=== PATIENT | female | born 1970 | race Caucasian/White ===

== ENCOUNTER → 2020-11-09 13:24 | Outpatient (BNVA) | payer SELFPAY | PROVIDERS: Visit Provider Orthopaedic Surgery | DX: M47.896 Other spondylosis, lumbar region (principal); M47.894 Other spondylosis, thoracic region; M54.6 Pain in thoracic spine; M54.5 Low back pain | CPT/HCPCS: 72072; 72110 ==

== ENCOUNTER 2020-12-01 08:54 | Day surgery (SDC) | payer SELFPAY ==
[2020-12-01] VITALS (12 sets, daily range): BP systolic 107–136; BP diastolic 61–81; PULSE 80–105; RESP 16–92; TEMP 36.1–36.6; O2SAT 92–97; BMI 33.3
--- NOTE | 2020-12-01 | SCC_ITS ---
25.8 seconds of fluoroscopic guidance, for a cumulative dose of 8.15 mGy, was provided to Dr. Sol by the radiology department. C-arm images of the lumbar spine were saved for the patient's permanent record. [facility]
--- NOTE | 2020-12-01 | XR_ITS ---
WS: [id number] Lumbar spine, C-arm fluoroscopy, 12/01/2020 Clinical Data: decompression L4/L5 L5/S1 Comparison: Lumbar spine, 11/09/2020. Findings: Dr. Sol decompressed the L4-L5 disc. XR/XR lumbar spine 1V [id number] Impression: L4-L5 decompression.
--- NOTE | 2020-12-01 09:41 | ANES.PREANE2 ---
Pre-Anesthetic Assessment Pre-Anesthetic Assessment: Height/Weight: Height 1.63 m Weight 87.997 kg Temp Pulse BP Pulse Ox 97 F L 100 120/79 96 12/01/20 09:26 12/01/20 09:26 12/01/20 09:26 12/01/20 09:26 Preop Diagnosis: lumbar stenosis Proposed Procedure: Operation Date: 12/01/20 10:15 Proposed Procedures p right MIS Decompression L4/5 86225 L5/S1 53873 M48.062(Right) - Luan Sol DO Familial anesthetic complications: none Was Beta Vanda taken within 24 hours: N/A Was Clonidine taken within 24 hours: N/A Last intake: > 8hrs Social: Social History: No alcohol and No tobacco Exam: Pre-Anes Outpt Exam: alert, oriented x 3, clear to auscultation bilaterally and regular rate & rhythm Airway: Cervical ROM: WNL MP: 3 Dentition: Other (back teeth missing) GI: GI: GERD Metabolic: Metabolic: Morbid obesity Anesthetic Plan: ASA status: 2 Anesthesia: General Risk of > 500 ml blood loss (7ml/kg in children): No PFSH Anesthesia PFSH: Social History Smoking and tobacco status: former smoker Data Anesthesia Cardiac Studies: No Data to Display
[2020-12-01] MEDS: sodium chloride 0.9% 1,000 ML 30 ML IV (09:57)
[2020-12-01] MEDS: midazolam 1 mg/mL INJ 2 mL 2 MG IVP (09:58)
[2020-12-01 10:00] LABS: OR HCG Qualitative Urine Negative (Negative)
[2020-12-01] MEDS: fentaNYL 50 mcg/mL INJ 2mL IVP (11:42)
[2020-12-01] MEDS: HYDROcodone-acetaminophen 5-325 mg Tablet 1 TAB PO ×2 (12:45→13:30)
--- NOTE | 2020-12-01 14:25 | ANE.PACU2 ---
Inpatient post-anesthesia follow up: Airway intact: Yes Vital signs: Temperature 97.6 F Pulse Rate 80 Respiratory Rate 92 Blood Pressure 114/73 Pulse Oximetry 92 Oxygen Delivery Me thod Room Air Oxygen Flow Rate 8 Fraction of Inspir ed Oxygen Hydration adequate: Yes Nausea and vomiting: No Pain level: 2 Mental status: Baseline
== END 2020-12-01 13:55 | disposition home or self-care (01) ==
PROVIDERS: Visit Provider Orthopaedic Surgery
PROC: (CPT 63005; principal; 2020-12-01 10:05)
DX: M48.062 Spinal stenosis, lumbar region with neurogenic claudication (principal); K21.9 Gastro-esophageal reflux disease without esophagitis; E66.01 Morbid (severe) obesity due to excess calories; Z68.33 Body mass index [BMI] 33.0-33.9, adult; Z87.891 Personal history of nicotine dependence
CPT/HCPCS: 63047; 63048; 72020; 76000; 81025; 84703; 96374; J0690; J1100; J2250; J2370; J2405; J2704; J3010; J3490; J7030

== ENCOUNTER → 2022-07-02 10:51 | Outpatient (BNVA) | payer BC, SELFPAY | PROVIDERS: Visit Provider Physician Assistant | DX: Z98.890 Other specified postprocedural states (principal) | CPT/HCPCS: 72100 ==

== ENCOUNTER → 2023-02-06 16:03 | Outpatient (BNVA) | payer BC, MEDICAID, SELFPAY | PROVIDERS: PCP Family Medicine; Visit Provider Family Medicine | DX: Z01.818 Encounter for other preprocedural examination (principal) | CPT/HCPCS: 81000 ==

== ENCOUNTER 2023-02-07 11:13 | Observation (INO) | payer BC, MEDICAID, SELFPAY ==
[2023-02-06 10:50] VITALS: BMI 30.7
[2023-02-07] VITALS (23 sets, daily range): BP systolic 90–133; BP diastolic 53–80; PULSE 86–115; RESP 14–26; TEMP 36.2–37.2; O2SAT 90–98
--- NOTE | 2023-02-07 | XR_ITS ---
WS: [id number] Lumbar spine, C-arm fluoroscopy views, 02/07/2023 Clinical Data: L4-pelvis fusion, or pic Comparison: None. Findings: Dr. Sol: performed a posterior lumbosacral fusion with artificial disks and fusion of the SI joints . Impression: Posterior lumbosacral fusion.
[2023-02-07] MEDS: sodium chloride 0.9% 1,000 ML 30 ML IV (06:27)
[2023-02-07] MEDS: methadone 10 mg Tablet PO (06:28)
--- NOTE | 2023-02-07 06:35 | W.PM.OPSUD ---
Surgery/Procedure H&P Update DATE OF PROCEDURE: February 07, 2023 DATE H&P PERFORMED: 02/06/23 H&P UPDATE INFORMATION: I have reviewed H&P completed within last 30 days, I have examined patient prior to procedure and No changes to prior documentation PREOP DIAGNOSIS: Low BackPain PLANNED PROCEDURE: Operation Date: 02/07/23 07:00 Proposed Procedures p Posterior Lumbar Interbody Fusion(Not Applicable) - Luan Sol DO s Sacroiliac Joint Fusion SI Joint Fusion(Not Applicable) - Luan Sol DO
[2023-02-07] MEDS: ceFAZolin 2,000 MG in sodium chloride 0.9% (plus) 50 ML 100 MG IV ×3 (07:01→23:21)
[2023-02-07] MEDS: midazolam 1 mg/mL INJ 2 mL 2 MG IVP (07:01)
[2023-02-07] MEDS: famotidine 20 mg/2 mL INJ IVP (07:01)
[2023-02-07] MEDS: scopolamine 1.5 Patch 1 PATCH TRANSDERMA (07:02)
[2023-02-07 07:31] LABS: Basophils % 0.4 %; Eosinophils # 0.2 10^3/uL (0.0-0.8); Eosinophils % 2.3 %; Hematocrit 38.5 % (36-47); Lymphocytes # 2.1 10^3/uL (0.8-4.8); Lymphocytes % 28.7 %; Mean Corpuscular Hemoglobin 30.3 pg (27-33); Mean Corpuscular Volume 89.1 fl (85-98); Mean Platelet Volume 9.6 fL (7.4-10.4); Monocytes # 0.7 10^3/uL (0.2-0.9); Neutrophils # 4.31 10^3/uL (1.8-7.7); Neutrophils % 59.5 %; Nucleated Red Blood Cells % 0 %; Platelet Count 218 10^3/cmm (157-399); Red Blood Count 4.32 10^6/uL (3.85-5.65); Red Cell Distribution Width 11.8 % (12.1-15.1); White Blood Count 7.25 10^3/uL (3.29-11.43)
[2023-02-07 07:44] LABS: Alanine Aminotransferase 27 U/L (0-33); Albumin Level 4.2 g/dL (3.5-5.2); Alkaline Phosphatase 91 U/L (35-105); Anion Gap 14.8 (5-19); Aspartate Amino Transferase 27 U/L (0-32); Blood Urea Nitrogen 12 mg/dL (6-20); Calcium 9.2 mg/dL (8.5-10.5); Carbon Dioxide 24 mmol/L (22-29); Chloride 107 mmol/L (98-107); Globulin 2.5 g/dL (1.3-4.6); Glucose 134 mg/dL (65-115); Osmolality Calculated 296 mOsm/kg (285-295); Potassium 3.8 mmol/L (3.5-5.1); Sodium 142 mmol/L (136-145); Total Bilirubin 0.2 mg/dL (0.15-1.2); Total Protein 6.7 g/dL (6.6-8.7)
[2023-02-07] MEDS: lidocaine-epi 1% 20 mL INJ INJECTION (08:00)
[2023-02-07] MEDS: vancomycin 1,000 MG SDV 1000 MG XX (08:08)
[2023-02-07] MEDS: heparin, porcine 1,000 unit/mL INJ 10 mL 10000 UNIT IRRIGATION (08:11)
--- NOTE | 2023-02-07 08:26 | ANES.PREANE2 ---
Pre-Anesthetic Assessment Height/Weight: Height 1.62 m Weight 80.739 kg Temp Pulse Resp BP Pulse Ox O2 Del Method 97.8 F 90 16 110/68 96 Room Air 02/07/23 06:11 02/07/23 06:11 02/07/23 06:28 02/07/23 06:11 02/07/23 06:11 02/07/23 06:33 Preop Diagnosis: Low BackPain Operation Date: 02/07/23 07:00 Proposed Procedures p Posterior Lumbar Interbody Fusion(Not Applicable) - Luan Sol DO s Sacroiliac Joint Fusion SI Joint Fusion(Not Applicable) - Luan Sol DO Familial anesthetic complications: none Was Beta Vanda taken within 24 hours: N/A Was Clonidine taken within 24 hours: N/A Last intake: Intake Last Liquid Date 02/06/23 Last Liquid Time 20:00 Last Solid Date 02/06/23 Last Solid Time 21:00 Social No alcohol and No tobacco Exam alert, oriented x 3, clear to auscultation bilaterally and regular rate & rhythm Airway Submandibular: within normal limits Cervical ROM: within normal limits Mallampati: Class II Dentition: chipped GI Gastroesophageal Reflux Disease Metabolic Hyperlipidemia, Morbid Obesity and Thyroid Disease Chronic steroid Musc/skel Lower Back Pain and Osteoarthritis/DJD Neuropsych Anxiety and Depression Chronic pain/opioid Anesthetic Plan ASA status: 3 Anesthesia: General Other: Discussed a.line and transfusion Medications/Allergies Home Medications Medication Instructions Recorded Confirmed Last Taken Type atorvastatin 10 mg tablet 40 mg PO DAILY 11/09/20 02/06/23 02/06/23 History clonazepam 1 mg tablet 0.5 mg PO DAILY 11/09/20 02/07/23 02/07/23 History duloxetine 60 mg capsule,delayed 60 mg PO BID 11/09/20 02/06/23 02/07/23 History release (Cymbalta) lamotrigine 100 mg tablet 100 mg PO DAILY 11/09/20 02/07/23 02/06/23 History (Lamictal) pantoprazole 20 mg tablet,delayed 20 mg PO DAILY 11/09/20 02/06/23 02/07/23 History release hydrocodone 5 mg-acetaminophen 325 1 - 2 tab PO .Q4-6H PRN pain 7 07/02/22 02/06/23 02/06/23 Rx mg tablet days #40 tabs levothyroxine 75 mcg capsule 75 mcg PO DAILY 07/02/22 02/06/23 02/07/23 History prednisone 5 mg tablet 5 mg PO DIRECTED 10/15/22 02/06/23 02/01/23 History intraoperative neurophysiological #1 ea 12/20/22 12/20/22 Unknown Rx monitoring Cher White #1 ea 01/27/23 Unknown Rx laurala white #1 ea 01/27/23 Unknown Rx cher white #1 ea 01/27/23 Unknown Rx cetirizine 10 mg tablet 10 mg PO BID PRN Allergic Symptoms 02/06/23 02/07/23 02/07/23 History fenofibrate 54 mg tablet 54 mg PO DAILY 02/06/23 02/07/23 02/06/23 History methocarbamol 750 mg tablet 750 mg PO TID PRN Spasms 02/06/23 02/07/23 02/06/23 History trazodone 50 mg tablet 100 mg PO DAILY 02/06/23 02/07/23 02/06/23 History Allergies Allergy/AdvReac Type Severity Reaction Status Date / Time hydromorphone [From Dilaudid] Allergy Severe ALGY-Anaphy Verified 02/07/23 06:13 laxis metronidazole Allergy Intermediate Urticaria Verified 02/07/23 06:13 sulfamethoxazole Allergy Mild Hives Verified 02/07/23 06:13 [From Bactrim] trimethoprim [From Bactrim] Allergy Mild Hives Verified 02/07/23 06:13 Current Medications Generic Name Dose Route Start Last Admin Trade Name Freq PRN Reason Stop Dose Admin Sodium Chloride 1,000 mls @ 30 mls/hr 02/07/23 06:15 02/07/23 06:27 Sodium Chloride 0.9% IV 02/08/23 06:14 30 mls/hr .Q24H SINGH Administration Midazolam HCl 2 mg 02/07/23 06:11 02/07/23 07:01 Midazolam 1 Mg/Ml Inj 2 Ml IVP 2 mg ONCE PRN Administration Preop Anxiety Data Anesthesia 02/07/23 06:50 02/07/23 06:50 Short CBC 02/07/23 Range/Units 06:50 WBC 7.25 (3.29-11.43) 10^3/uL Hgb 13.10 (11.27-16.99) g/dL Hct 38.5 (36-47) % MCV 89.1 (85-98) fl Plt Count 218 (157-399) 10^3/cmm Neut % (Auto) 59.5 % Neut # (Auto) 4.31 (1.8-7.7) 10^3/uL BMP 02/07/23 06:50 Sodium 142 Potassium 3.8 Chloride 107 Carbon Dioxide 24 BUN 12 Creatinine 0.9 Glucose 134 H Calcium 9.2 Liver Function 02/07/23 Range/Units 06:50 Total Bilirubin 0.2 (0.15-1.2) mg/dL AST 27 (0-32) U/L ALT 27 (0-33) U/L Alkaline Phosphatase 91 (35-105) U/L Albumin 4.2 (3.5-5.2) g/dL Blood Bank 02/07/23 06:50 Blood Type A Positive Rho(D) Type Positive Antibody Screen Negative Cardiac Studies: No Data to Display
--- NOTE | 2023-02-07 11:01 | P.OP_ITS ---
Operative Report Date of procedure: February 07, 2023 Pre-op diagnosis: Lumbar stenosis with neurogenic claudication Post-op diagnosis: same Procedure done: 1. L4/5 Interbody fusion with posterolateral fusion 2. L5/S1 Interbody fusion with posterolateral fusion 3. Instrumentation L4-S1 4. Lumbopelvic fixation 5. Cage at L4/5 6. Cage L5/S1 7. open Right Sacral iliac fusion 8. open Left sacral iliac fusion 9. L4/5 laminectomy with facetectomy 10. L5/S1 Laminectmy with partial facetectomy 11. use of computer navigation/stereotactic for spine 12. use of autograft from same incision 13. allograft 14. Bone marrow aspirate from right iliac crest Surgeon: Luan Sol DO Farm Tractor Operator: Tra Jensen Farm Tractor Operator: The assistant superintendent, MORRO Epstein was needed for his expertise under the microscope. He was important and necessary throughout the procedure to complete in a safe and timely manner. He assisted with patient positioning prepping and draping tissue retraction suctioning of the operative field protection of the dural sac and tissue closure the assistant superintendent, MORRO Epstein was needed for his expertise under the microscope. He was important and necessary throughout the procedure to complete in a safe and timely manner. He assisted with patient positioning prepping and draping tissue retraction suctioning of the operative field protection of the dural sac and tissue closure Estimated blood loss (mL): 500 Procedure: 1. L4/5 Interbody fusion with posterolateral fusion 2. L5/S1 Interbody fusion with posterolateral fusion 3. Instrumentation L4-S1 4. Lumbopelvic fixation 5. Cage at L4/5 6. Cage L5/S1 7. open Right Sacral iliac fusion 8. open Left sacral iliac fusion 9. L4/5 laminectomy with facetectomy 10. L5/S1 Laminectmy with partial facetectomy 11. use of computer navigation/stereotactic for spine 12. use of autograft from same incision 13. allograft 14. Bone marrow aspirate from right iliac crest Patient is brought to the operative suite. After undergoing anesthesia, the patient had neuro monitoring attached. Patient was then placed in the prone position on the Elier table. All areas of impingement were well-padded. Patient was then prepped and draped in the normal sterile fashion. Skin incision was then made over the L4 to the sacrum . Subperiosteal dissection was made out to the transverse processes of L4 and L5 and sacral ala. Once the exposure was complete attention was then brought to placing the pedicle screws. Next attention was brought to obtain the bone marrow aspirate.? This was done by using the regenerative bone marrow aspiration kit.? 20 cc of bone marrow aspirate were taken from the right iliac crest.? This was later used with the osteo amp bone graft. Next attension was brought to placing the fiducial for the computer navigation.? 2 pins were placed into the right iliac crest.? The fiducial was attached.? The C-arm was brought in and information from serum was then linked to the computer used for placing the screws.? The case. Next attention was brought to placing the pedicle screws.? This was done by using the gearshift probe.? The probe was used to identify the pedicle.? Then the pedicle feeler was used followed by placement of screw.? This was done at L4 bilaterally, L5 bilaterally and S1 bilaterally. Next attension was brought to placing the iliac screws.? This was done using the sacral ala iliac technique.? The gearshift probe linked to computer navigation was then placed through the sacral ala into the sacroiliac joint into the iliac crest.? Next the pedicle feeler was used followed by the computer navigated tap.? And then the screw was passed a 80 mm screw was placed on the right side. Next attension was brought to performing the open and sacral iliac fusion.? This was done by again using the gearshift probe linked to computer navigation.? Followed by pedicle feeler followed by placing a wire and then the drill drilled over the wire and then bone graft was packed into the sacroiliac joint and into the drill hole.? And the sacroiliac screw was then placed.? This technique was done on the right side. Next attention was brought to performing the laminectomy ofL4. This was done using the high-speed bur Kerrisons and curettes. Once the lamina was removed and then attention was brought to performing a partial facetectomy on the contralateral side. This was done again using the high-speed bur curettes and Kerrisons. The ligamentum flavum was taken down bilaterally from L4 to L5. Attention was then brought to the facet on the ipsilateral side. The facet was taken down. The L5 nerve was decompressed as it passed around the L5 pedicle. The laminectomy was done for purposes of decompressing the nerve as well as placement of the cage. The L4 nerve was identified as it traversed through the L4/5 foramen. The thecal sac was identified and retracted. The L4/5 disc base was identified. Using a knife the disc base was opened. And then sequential emir were placed. The first shaver was a 6 and the last shaver was a 12. Using a pituitary and down going curette the endplates were scraped and disc material was removed from the space. Once adequate decompression of the disc base was felt to be had. Osteoamp sponge was packed into the anterior aspect of the disc base. Then a size 12 cage from [employer] was placed after packing osteoamp into the cage. While placing the cage the thecal sac and L5 nerve was protected. C arm was used to ensure that the cages placed in the appropriate position. Next attention was brought to performing the laminectomy ofL5. This was done using the high-speed bur Kerrisons and curettes. Once the lamina was removed and then attention was brought to performing a partial facetectomy on the contralateral side. This was done again using the high-speed bur curettes and Kerrisons. The ligamentum flavum was taken down bilaterally from L5 to S1. Attention was then brought to the facet on the ipsilateral side. The facet was taken down. The S1 nerve was decompressed as it passed around the S1 pedicle. The laminectomy was done for purposes of decompressing the nerve as well as placement of the cage. The L5 nerve was identified as it traversed through the L5/S1 foramen. The thecal sac was identified and retracted. The L5/S1 disc base was identified. Using a knife the disc base was opened. And then sequential emir were placed. The first shaver was a 6 and the last shaver was a 12. Using a pituitary and down going curette the endplates were scraped and disc material was removed from the space. Once adequate decompression of the disc base was felt to be had. Osteoamp sponge was packed into the anterior aspect of the disc base. Then a size 13 cage from [employer] was placed after packing osteoamp into the cage. While placing the cage the thecal sac and S1 nerve was protected. C arm was used to ensure that the cages placed in the appropriate position. Attention was then brought to attaching the rods to the screws placed in the L4 bilaterally, L5 bilaterally S1 bilaterally and then this was attached to the sacral ala iliac screws going into the iliac pelvis screw. This was done bilaterally. Caps were torqued into position. Locking the construct in place. Wound was copiously irrigated and then attention was brought to decorticating the facets and transverse processes laterally. Bone that was taken down from the lamina was used along with osteoamp fibers and sponges were packed into the lateral gutters along the facet joints. This was done bilaterally. Wound was then closed in a layered fashion starting with the thoracolumbar fascia. 0-vicryl was used the sub cutaneous tissue was closed with 2-0 vicryl and skin with 4-0 monocryl. Glue was then used to seal the skin and a steril dressing was applied. Patient was then placed in the supine position. The endotracheal tube was removed and patient was transferred to the PACU in stable condition.
[2023-02-07] MEDS: ketorolac 30 mg/mL INJ IVP ×2 (11:59→18:00)
[2023-02-07] MEDS: lactated ringers 1,000 ML 90 ML IV ×2 (11:59→23:22)
[2023-02-07] MEDS: morphine 4 mg/mL SDV 1 mL 2 MG IVP ×2 (12:21→15:33)
--- NOTE | 2023-02-07 13:25 | ANE.PACU2 ---
Inpatient post-anesthesia follow up: Airway intact: Yes Vital signs: Temperature 97.8 F Pulse Rate 101 Respiratory Rate 15 Blood Pressure 96/63 Pulse Oximetry 93 Oxygen Delivery Me thod Room Air Oxygen Flow Rate 8 Fraction of Inspir ed Oxygen Hydration adequate: Yes Nausea and vomiting: No Pain level: 4 Mental status: Baseline
[2023-02-07] MEDS: oxyCODONE-APAP 10-325 mg Tablet PO ×2 (13:43→20:07)
[2023-02-07] MEDS: oxyCODONE 20 mg ER (12 HR) Tablet PO (17:40)
[2023-02-07] MEDS: docusate sodium 100 mg Capsule PO (17:40)
[2023-02-07] MEDS: duloxetine 60 mg Capsule PO (17:40)
[2023-02-07] MEDS: cetirizine 10 mg Tablet PO (18:01)
[2023-02-07] MEDS: lamoTRIgine 100 mg Tablet PO (18:01)
[2023-02-07] MEDS: ondansetron 2 mg/ML SDV 2 mL 4 MG IVP (19:50)
[2023-02-07] MEDS: magnesium hydroxide 30 mL UDC PO (19:50)
[2023-02-07] MEDS: lanolin oint 7 gm 1 APPLIC TOPICAL (21:31)
[2023-02-08] VITALS: BP 116/70; PULSE 103; RESP 16; TEMP 37.1; O2SAT 93
[2023-02-08] MEDS: ketorolac 30 mg/mL INJ IVP ×2 (00:14→06:08)
[2023-02-08 02:25] VITALS: RESP 16; O2SAT 93
[2023-02-08] MEDS: oxyCODONE-APAP 10-325 mg Tablet PO (02:25)
[2023-02-08 03:24] VITALS: BP 112/70; PULSE 104; RESP 16; TEMP 37.1; O2SAT 90
[2023-02-08] MEDS: ceFAZolin 2,000 MG in sodium chloride 0.9% (plus) 50 ML 100 MG IV (06:03)
[2023-02-08] MEDS: cetirizine 10 mg Tablet PO (06:03)
[2023-02-08] MEDS: alum-mag-hydroxide-sime 30 mL UDC PO (06:03)
--- NOTE | 2023-02-08 07:11 | PM.PN ---
Subjective Subjective: POD 1 Patient resting comfortably. Ready to go to go home. Has intermittent back pain swelling in her left foot and big toe denies any chest pain, shortness of breath, headaches. Vitals/I&O/Wt Last Vital Signs Temp 98.8 F 02/08/23 03:24 Pulse 104 H 02/08/23 03:24 Resp 16 02/08/23 03:24 BP 112/70 02/08/23 03:24 Pulse Ox 90 02/08/23 03:24 O2 Del Method Room Air 02/08/23 03:24 O2 Flow Rate 8 02/07/23 11:27 02/07/23 02/08/23 02/08/23 22:59 06:59 14:59 Intake Total 290 / 2040 1050 / 3090 50 / 50 Output Total 440 / 1140 960 / 2100 Balance -150 / 900 90 / 990 50 / 50 Weight last 48 hrs Weight 178 lb Weight 178 lb Physical Exam Narrative: Patient presents alert and oriented x3 with a good general appearance normal mood and affect. Normal coordination normal stability. Mild tenderness around the incisional site with the incision appear to be clean and dry with Hemovac intact.. No signs of erythema or drainage. No signs of infection. Patient denies any fevers or chills. 5/5 motor strength both lower extremities with negative straight leg raise bilaterally. Calves are supple no medial thigh tenderness. Pulses are 2+ at the dorsalis pedis and posterior tibial region. Good capillary refill throughout normal sensation light touch both lower extremities. Urinary Catheter Management: Melara: Cath Placed During This Visit: yes, but has since been removed by the nurse Reason for Continuing Indwelling Catheter: Decision to DC Catheter Urinary Catheter Date of Insertion: 02/07/23 Urinary Catheter Time of Insertion: 07:15 Date Urinary Catheter Removed: 02/07/23 Time Urinary Catheter Discontinued: 12:32 Data 02/07/23 06:50 02/07/23 06:50 A&P Assessment and plan (1) Status post lumbar spinal fusion: Discontinue Hemovac drain. Continue incentive spirometry at home. Continue walking program with no bending lifting or twisting. We will see her back in 2 weeks time for wound check. Attestations Medical Necessity Statement*: Discharge home this morning. Coding Level of Care Code Acute Code for Chg Fwd Diagnoses Status post lumbar spinal fusion Z98.1
[2023-02-08 08:00] VITALS: BP 122/74; PULSE 103; RESP 16; TEMP 36.9; O2SAT 98
[2023-02-08] MEDS: levothyroxine 75 mcg Tablet PO (08:45)
[2023-02-08] MEDS: duloxetine 60 mg Capsule PO (08:45)
[2023-02-08 08:46] VITALS: RESP 17
[2023-02-08] MEDS: CLONazepam 1 mg Tablet 0.5 MG PO (08:46)
[2023-02-08] MEDS: pantoprazole DR 40 mg Tablet PO (08:46)
[2023-02-08] MEDS: oxyCODONE 20 mg ER (12 HR) Tablet PO (08:46)
--- NOTE | 2023-02-08 10:55 | PC.NURSE ---
Hemovac drain removed intact. Pt tolerated removal well.
[2023-02-08 12:10] VITALS: RESP 17
--- NOTE | 2023-02-10 14:42 | PM.DCS ---
Discharge Providers Date of Admission: 02/07/23 11:13 Date of Discharge: 02/08/23 Attending Provider at Admission: Luan Sol DO Attending Provider at Discharge: Luan Sol DO Primary Care Provider: Taya Beal DO Diagnoses at Discharge Discharge Diagnosis (1) Status post lumbar spinal fusion: Status: Acute Reason for Visit Reason for Visit: M48.062 Physical Exam Urinary Catheter Management: Melara: Cath Placed During This Visit: yes, but has since been removed by the nurse Reason for Continuing Indwelling Catheter: Decision to DC Catheter Urinary Catheter Date of Insertion: 02/07/23 Urinary Catheter Time of Insertion: 07:15 Date Urinary Catheter Removed: 02/07/23 Time Urinary Catheter Discontinued: 12:32 Discharge Data Studies Completed and Pending Completed Studies During Hospitalization Category Date Time Status XR lumbar spine 2-3V* 95070 Routine Exams 02/07/23 Completed Laboratory Results WBC 7.25 10^3/uL (3.29-11.43) 02/07/23 06:50 RBC 4.32 10^6/uL (3.85-5.65) 02/07/23 06:50 Hgb 13.10 g/dL (11.27-16.99) 02/07/23 06:50 Hct 38.5 % (36-47) 02/07/23 06:50 MCV 89.1 fl (85-98) 02/07/23 06:50 MCH 30.3 pg (27-33) 02/07/23 06:50 MCHC 34.0 g/dL (30-55) 02/07/23 06:50 RDW 11.8 % (12.1-15.1) L 02/07/23 06:50 Plt Count 218 10^3/cmm (157-399) 02/07/23 06:50 MPV 9.6 fL (7.4-10.4) 02/07/23 06:50 Neut % (Auto) 59.5 % 02/07/23 06:50 Lymph % (Auto) 28.7 % 02/07/23 06:50 Gates % (Auto) 9.0 % 02/07/23 06:50 Eos % (Auto) 2.3 % 02/07/23 06:50 Baso % (Auto) 0.4 % 02/07/23 06:50 Neut # (Auto) 4.31 10^3/uL (1.8-7.7) 02/07/23 06:50 Lymph # (Auto) 2.1 10^3/uL (0.8-4.8) 02/07/23 06:50 Gates # (Auto) 0.7 10^3/uL (0.2-0.9) 02/07/23 06:50 Eos # (Auto) 0.2 10^3/uL (0.0-0.8) 02/07/23 06:50 Baso # (Auto) 0.0 10^3/uL (0.0-0.1) 02/07/23 06:50 Nucleated RBC % (auto) 0 % 02/07/23 06:50 Nucleated RBCs # 0.0 /100WBC 02/07/23 06:50 Sodium 142 mmol/L (136-145) 02/07/23 06:50 Potassium 3.8 mmol/L (3.5-5.1) 02/07/23 06:50 Chloride 107 mmol/L (98-107) 02/07/23 06:50 Carbon Dioxide 24 mmol/L (22-29) 02/07/23 06:50 Anion Gap 14.8 (5-19) 02/07/23 06:50 BUN 12 mg/dL (6-20) 02/07/23 06:50 Creatinine 0.9 mg/dL (0.5-0.9) 02/07/23 06:50 GFR Calculation 66.0 mL/min (90-130) L 02/07/23 06:50 Glucose 134 mg/dL (65-115) H 02/07/23 06:50 Calculated Osmolality 296 mOsm/kg (285-295) H 02/07/23 06:50 Calcium 9.2 mg/dL (8.5-10.5) 02/07/23 06:50 Total Bilirubin 0.2 mg/dL (0.15-1.2) 02/07/23 06:50 AST 27 U/L (0-32) 02/07/23 06:50 ALT 27 U/L (0-33) 02/07/23 06:50 Alkaline Phosphatase 91 U/L (35-105) 02/07/23 06:50 Total Protein 6.7 g/dL (6.6-8.7) 02/07/23 06:50 Albumin 4.2 g/dL (3.5-5.2) 02/07/23 06:50 Globulin 2.5 g/dL (1.3-4.6) 02/07/23 06:50 Blood Type A Positive 02/07/23 06:50 Rho(D) Type Positive 02/07/23 06:50 Antibody Screen Negative 02/07/23 06:50 Vitals Last Vital Signs Temp 98.5 F 02/08/23 08:00 Pulse 103 H 02/08/23 08:00 Resp 17 02/08/23 12:10 BP 122/74 02/08/23 08:00 Pulse Ox 98 02/08/23 08:00 O2 Del Method Room Air 02/08/23 08:00 O2 Flow Rate 8 02/07/23 11:27 Discharge Plan Discharge Patient Disposition: Home Condition: Stable Prescriptions: Continued duloxetine [Cymbalta] 60 mg capsule,delayed release(DR/EC) 60 mg PO BID lamotrigine [Lamictal] 100 mg tablet 100 mg PO DAILY pantoprazole 20 mg tablet,delayed release (DR/EC) 20 mg PO DAILY cetirizine 10 mg tablet 10 mg PO BID PRN (Reason: Allergic Symptoms) fenofibrate 54 mg tablet 54 mg PO DAILY methocarbamol 750 mg tablet 750 mg PO TID PRN (Reason: Spasms) levothyroxine 75 mcg capsule 75 mcg PO DAILY prednisone 5 mg tablet 5 mg PO DIRECTED Rx Instructions: see taper instructions (DME) Cher Guzman See Rx Instructions .Route .MEDSUPPLY Qty: 1 0RF Rx Instructions: As directed (DME) cher guzman See Rx Instructions .Route .MEDSUPPLY Qty: 1 0RF Rx Instructions: As directed (DME) cher guzman See Rx Instructions .Route .MEDSUPPLY Qty: 1 0RF Rx Instructions: As directed atorvastatin 40 mg tablet 40 mg PO DAILY clonazepam 0.5 mg Tablet See Rx Instructions .ROUTE .COMPLEX PRN (Reason: Anxiety) Rx Instructions: 0.5 mg orally up to 3 times daily trazodone 100 mg Tablet 100 mg PO DAILY (DME) intraoperative neurophysiological monitoring See Rx Instructions .Route .MEDSUPPLY Qty: 1 0RF Rx Instructions: As directed Discharge Orders: Discharge Order (Routine); Ordered 02/08/23 Ordered By: Tra Jensen Referrals: Luan Sol DO [Physician] - 2 weeks (We have notified your physician's clinic of the need for a follow-up appointment to be scheduled. If you have not heard from them within the next 2 business days, please call them directly. You may also reach out to our manager of broadcast content at [phone] and she can assist you.) TAYA BEAL DO [Primary Care Provider] - (Please call to schedule and appointment with Dr. Beal.) Discharge Diet: Advance as tolerated Discharge Activity: Limit activity as instructed Patient Instructions: Hydrocodone/Acetaminophen (By mouth), Lumbar Spinal Fusion (GEN), Opioid Safety Activity Restrictions/Additional Instructions: Thank you for choosing [facility] for your care! The following is a list of instructions, from your provider, to follow upon your discharge to ensure you have the optimal recovery from your recent injury or surgery. Follow-up care is a espinal part of your treatment and safety. Be sure to make and go to all appointments and call your doctor if you are having problems. If you do not already have a follow-up appointment made, call Dr. Sol's] office in the next 1-3 days to make follow up appointment for 2 weeks at [phone]. It is also a good idea to know your test results and keep a list of the medicines you take. Medications will be prescribed for you at your provider's discretion. These medications are to be used as instructed; if they are taken more often that prescribed they will not be refilled early and in most cases will not be refilled at all. > When a refill is needed, you should contact rach chew 2-3 business days before your prescription runs out. Medications will NOT be refilled by credit controller providers after hours! > Many pain medications contain Tylenol (Acetaminophen). Do not consume more than 4,000 mg of Tylenol per day in total with any combination of medications. > Pain medications can cause constipation. Please use an over the counter stool softener as directed, while taking pain medications. Consult your local pharmacist with questions or recommendations on stool softeners. If constipation persists, contact our office or your primary care provider. > While under our care, you are not to receive pain medications or other controlled substances from any other provider unless our office is notified and approves. Any attempts to do so will result in refusal to prescribe any further pain medications and possible dismissal from our practice. ? Walking is essential for the healing process after surgery. We would like you to slowly advance your walking. This should be done on relatively flat clear ground (inside or out) or can be done on a treadmill. Remember this goal does not have to happen all at once, slowly increase your distance and duration. This can be broken into more more than one walk per day as tolerated. Patients who walk as directed after surgery rarely require Physical Therapy. In the unlikely event this issue arises your provider will direct hospital staff to make the appropriate arrangements. ? No lifting over 5 pounds {a gallon of milk) or bending/twisting until further notice. Each of these activities places an unnecessary amount of stress onto the body and can impede the delicate healing process. > Instead of bending at the waist, keep your back straight and bend at the knees. > Instead of twisting your torso, keep your back straight and turn your entire body with your feet. ? You may sleep in any position which makes you comfortable. Many patients find comfort sleeping in a reclining chair. It is not abnormal to have difficulty sleeping for the first several weeks following your surgery. We recommend trying Benadry! or Tylenol PM as directed to help with your sleeping difficulties. Both medications are over the counter and available without prescription. ? NO SMOKING!!! Smoking dramatically increases the probability of developing postoperative wound infections. ? Common complaints after lumbar and/or thoracic spine surgery include, but are not limited to: numbness and/or tingling in the legs, pain around the incision and surrounding tissues, muscle spasms, or stiffness of the middle to low back. Contact our office if these symptoms persist or if an acute change occurs. ? No driving for the first 3-5days, and not while taking narcotics until seen at your follow-up appointment and cleared. There are no restrictions for riding on short trips, however if you take a longer trip, arrangements should be made to make regular stops to get out of the vehicle and stretch . ? Swelling is an unfortunate event that will take place with any surgery and is the primary source of your postoperative discomfort. While walking and regular approved activities helps control inflammation, there are additional steps you can take to minimize swelling. > Place ice over the surgical site and surrounding tissue for twenty minutes, followed by applying a low/medium heat (heating pad) for an additional twenty minutes every 1-2 hours as needed for painrelief. > You may use of over the counter anti-inflammatory medications (Ibuprofen, Motrin, Aleve, Advil, etc) as directed on the package label. These types of medicines will significantly reduce the amount of discomfort you experience after surgery from swelling. It should be noted that if you have and allergy to any of these medications, or a history of ulcers or kidney disease you should consult you primary care provider prior to starting these medications. Discharge Attestations Time Spent in Discharge Care*: less than 30 min Quality Metrics Clinical Quality Measures [ No reported AMI, CVA or VTE this stay] Coding Level of Care Code Acute Code for Chg Fwd Diagnoses Status post lumbar spinal fusion Z98.1
== END 2023-02-08 12:12 | disposition home or self-care (01) | DRG 455 ==
LOC: MEDSURG 02-08 07:11
PROVIDERS: Admitting Provider Orthopaedic Surgery; PCP Family Medicine; Visit Provider Orthopaedic Surgery
PROC: (CPT 22612; principal; 2023-02-07 07:00)
PROC: (CPT 27280; 2023-02-07 07:00)
DX: M48.062 Spinal stenosis, lumbar region with neurogenic claudication (principal); K21.9 Gastro-esophageal reflux disease without esophagitis; E78.5 Hyperlipidemia, unspecified; E66.01 Morbid (severe) obesity due to excess calories; Z68.30 Body mass index [BMI] 30.0-30.9, adult; Z79.52 Long term (current) use of systemic steroids; G89.29 Other chronic pain; Z79.891 Long term (current) use of opiate analgesic
CPT/HCPCS: 20930; 20936; 20939; 22633; 22634; 22842; 22848; 22853; 27280; 61783; 63052; 63053; 51702; 72100; 76000; 80053; 85025; 86850; 86900; 97116; 97161; 97530; C1713; C9359; G0378; J0690; J1100; J1644; J1885; J2250; J2270; J2371; J2405; J2704; J2930; J3010; J3370; J3490; J7030; J7120; P9045

== ENCOUNTER → 2023-02-27 10:22 | Outpatient (BNVA) | payer BC, MEDICAID, SELFPAY | PROVIDERS: PCP Family Medicine; Visit Provider Physician Assistant | DX: Z98.1 Arthrodesis status (principal); Z47.89 Encounter for other orthopedic aftercare | CPT/HCPCS: 72100 ==

== ENCOUNTER → 2023-04-22 11:13 | Outpatient (BNVA) | payer BC, MEDICAID, SELFPAY | PROVIDERS: PCP Family Medicine; Visit Provider Physician Assistant | DX: Z98.1 Arthrodesis status (principal) | CPT/HCPCS: 72100 ==

== ENCOUNTER → 2023-07-22 13:19 | Outpatient (BNVA) | payer BC, MEDICAID, SELFPAY | PROVIDERS: PCP Family Medicine; Visit Provider Orthopaedic Surgery | DX: Z98.1 Arthrodesis status (principal) | CPT/HCPCS: 72100 ==

== ENCOUNTER → 2024-03-09 13:36 | Outpatient (BNVA) | payer BC, MEDICAID, SELFPAY | PROVIDERS: PCP Family Medicine; Visit Provider Orthopaedic Surgery | DX: Z98.1 Arthrodesis status (principal); M48.062 Spinal stenosis, lumbar region with neurogenic claudication | CPT/HCPCS: 72100 ==

== ENCOUNTER → 2024-06-01 14:17 | Outpatient (BNVA) | payer BC, MEDICAID, SELFPAY | PROVIDERS: PCP Family Medicine; Visit Provider Orthopaedic Surgery | DX: Z98.1 Arthrodesis status (principal) | CPT/HCPCS: 36415; 72100; 80053; 81001; 85025 ==

== ENCOUNTER 2024-06-21 13:44 | Day surgery (SDC) | payer BC, MEDICAID, SELFPAY ==
[2024-06-21] VITALS (10 sets, daily range): BP systolic 105–121; BP diastolic 52–71; PULSE 69–88; RESP 14–17; TEMP 36.2–36.3; O2SAT 95–99; BMI 29.0
--- NOTE | 2024-06-21 | XR_ITS ---
WS: [id number] XR pelvis 1-2V* 60434 REASON FOR EXAM: OR PICS FINDINGS: Removal of long oblique pelvic screws at S2. Screws have been totally removed with no remaining remnant. Other pelvic and lumbar hardware remain in proper position and alignment unchanged compared to 06/01/2024. XR/XR pelvis 1-2V* 93225 IMPRESSION: Pelvic screw removal without abnormality as above.
[2024-06-21] MEDS: sodium chloride 0.9% 1,000 ML 30 ML IV (14:54)
[2024-06-21] MEDS: scopolamine 1 mg PATCH 1 PATCH TRANSDERMA (14:59)
--- NOTE | 2024-06-21 15:18 | ANES.PREANE2 ---
Pre-Anesthetic Assessment Height/Weight: Height 5 ft 3 in Weight 164 lb Temp Pulse Resp BP Pulse Ox O2 Del Method 97.4 F L 73 14 105/70 97 Room Air 06/21/24 14:43 06/21/24 14:43 06/21/24 14:43 06/21/24 14:43 06/21/24 14:43 06/21/24 14:43 Preop Diagnosis: Painful orthopedic hardware Operation Date: 06/21/24 15:50 Proposed Procedures p Hardware Removal Iliac Screw 85379, T84.84XA(Left) - Luan Sol, Last intake: Intake Last Liquid Date 06/21/24 Last Liquid Time 07:00 Last Solid Date 06/20/24 Last Solid Time 20:00 Social No alcohol and No tobacco Exam alert, oriented x 3, clear to auscultation bilaterally and regular rate & rhythm Airway Submandibular: within normal limits Cervical ROM: within normal limits Mallampati: Class III Dentition: full Anesthetic Plan ASA status: 3 Anesthesia: General Other: No prior issues with anesthesia NPO since yesterday Prior anesthetic in 2022, grade 1 view with MAC 3 blade History of hypothyroidism on Synthroid GERD on Protonix Chronic pain meds, hydrocodone Recent labs reviewed and acceptable for procedure today Plan for general anesthetic Medications/Allergies Home Medications ?Medication ?Instructions ?Recorded ?Confirmed ?Last Taken ?Type duloxetine 60 mg capsule,delayed 60 mg PO BID 11/09/20 06/17/24 06/21/24 History release (Cymbalta) lamotrigine 100 mg tablet 100 mg PO DAILY 11/09/20 06/17/24 06/17/24 History (Lamictal) pantoprazole 20 mg tablet,delayed 20 mg PO DAILY 11/09/20 06/17/24 06/21/24 History release levothyroxine 75 mcg capsule 75 mcg PO DAILY 07/02/22 06/17/24 06/21/24 History intraoperative neurophysiological #1 ea 12/20/22 06/01/24 Unknown Rx monitoring Иванala White #1 ea 01/27/23 06/01/24 Unknown Rx laurala white #1 ea 01/27/23 06/01/24 Unknown Rx иванala white #1 ea 01/27/23 06/01/24 Unknown Rx cetirizine 10 mg tablet 10 mg PO BID PRN Allergic Symptoms 02/06/23 06/17/24 06/17/24 History fenofibrate 54 mg tablet 54 mg PO DAILY 02/06/23 06/17/24 06/16/24 History methocarbamol 750 mg tablet 750 mg PO TID PRN Spasms 02/06/23 06/17/24 06/14/24 History atorvastatin 40 mg tablet 40 mg PO DAILY 02/08/23 06/17/24 06/16/24 History clonazepam 0.5 mg tablet 0.5 mg PO TID PRN Anxiety 02/08/23 06/17/24 06/21/24 History toilet riser #1 ea 02/25/23 06/01/24 Unknown Rx walker #1 ea 02/25/23 06/01/24 Unknown Rx shower chair #1 ea 03/17/23 06/01/24 Unknown Rx hydrocodone 5 mg-acetaminophen 325 1 tab PO DAILY PRN pain 14 days 05/24/24 06/17/24 06/16/24 Rx mg tablet #14 tabs quetiapine 150 mg tablet,extended 150 mg PO DAILY 06/01/24 06/17/24 06/16/24 History release 24 hr (Seroquel XR) Allergies Allergy/AdvReac Type Severity Reaction Status Date / Time hydromorphone (From Dilaudid) Allergy Severe ALGY-Anaphy Verified 06/01/24 14:24 laxis metronidazole Allergy Intermediate Urticaria Verified 06/01/24 14:24 sulfamethoxazole (From Allergy Mild Hives Verified 06/01/24 14:24 Bactrim) trimethoprim (From Bactrim) Allergy Mild Hives Verified 06/01/24 14:24 Current Medications Generic Name Dose Route Start Last Admin Trade Name Freq PRN Reason Stop Dose Admin Sodium Chloride 1,000 mls @ 30 mls/hr 06/21/24 14:00 06/21/24 14:54 Sodium Chloride 0.9% IV 06/22/24 13:59 30 mls/hr .Q24H SINGH Administration PFSH Anesthesia Social History Smoking and tobacco/nicotine status: never used tobacco/nicotine Data Anesthesia Cardiac Studies: No Data to Display
--- NOTE | 2024-06-21 15:42 | W.PM.OPSUD ---
Surgery/Procedure H&P Update DATE OF PROCEDURE: June 21, 2024 DATE H&P PERFORMED: 06/01/24 H&P UPDATE INFORMATION: I have reviewed H&P completed within last 30 days, I have examined patient prior to procedure and No changes to prior documentation PREOP DIAGNOSIS: Painful orthopedic hardware PLANNED PROCEDURE: Operation Date: 06/21/24 15:50 Proposed Procedures p Hardware Removal Iliac Screw 40433, T84.84XA(Left) - Luan Sol DO
[2024-06-21] MEDS: ceFAZolin 2,000 mg SDV 2000 MG IVP (16:13)
[2024-06-21] MEDS: VANCOMYCIN ADD-Vantage 1,000 MG VIAL 1000 MG XX (16:41)
[2024-06-21] MEDS: lidocaine-epi 1% 20 mL INJ 10 ML INJECTION (16:41)
--- NOTE | 2024-06-21 17:19 | PM.OP ---
Operative Report Date of procedure: June 21, 2024 Pre-op diagnosis: Painful orthopedic hardware in the spine/pelvis Post-op diagnosis: same Procedure done: Removal of deep hardware from pelvis Surgeon: Luan Sol DO Estimated blood loss (mL): 20 Procedure: Removal of hardware deep from pelvis. Patient brought the operative suite after an undergoing anesthesia was placed in the prone position. All areas impingement well-padded. Patient's prepped draped in also fashion. Skin skin is made using the distal aspect of the previous skin incision. The thoracolumbar fascia was identified. We then retracted over the to the right side skin incision was made over the iliac screw and the etta. The etta and screw Identified. Screw Was removed. The etta was then cut using a metal cutting bur. Wound was irrigated out. The etta was cut was removed. And then the iliac screw was removed. Next attention was brought to the left screw. The same process was made to the thoracolumbar fascia split over the screw. The screw head was identified and removed. The etta was then cut using the metal cutting bur. And then the screw was removed. Fluoroscopy ensured that the screw was removed. Wounds were irrigated vancomycin powder was placed in close in layered fashion with 0 Vicryl 2-0 Vicryl Monocryl suture. Sterile dressings were applied patient transferred the PACU in stable condition.
--- NOTE | 2024-06-21 17:56 | PC.NURSE ---
I received a call from [facility] stating that the Hydrocodone-APAP order received from Dr. Sol today needed to have maximum of 6 tablets per day added to the label and they would like verbal approval to add that. I spoke with Dr. Sol and he approved the addition, so I spoke with [facility] pharmacy again and updated them. No further issues at this time.
[2024-06-21] MEDS: HYDROcodone-acetaminophen 5-325 mg Tablet 2 TAB PO (18:05)
--- NOTE | 2024-06-21 18:23 | ANE.PACU2 ---
Inpatient post-anesthesia follow up: Airway intact: Yes Vital signs: Temperature 97.2 F Pulse Rate 69 Respiratory Rate 16 Blood Pressure 112/68 Pulse Oximetry 96 Oxygen Delivery Me thod Room Air Oxygen Flow Rate Fraction of Inspir ed Oxygen Hydration adequate: Yes Nausea and vomiting: No Pain level: 2 Mental status: Baseline
== END 2024-06-21 18:23 | disposition home or self-care (01) ==
PROVIDERS: PCP Family Medicine; Visit Provider Orthopaedic Surgery
PROC: (CPT 20680; principal; 2024-06-21 15:50)
DX: T84.84XA Pain due to internal orthopedic prosthetic devices, implants and grafts, initial encounter (principal); Z79.899 Other long term (current) drug therapy; Z79.890 Hormone replacement therapy; Z88.2 Allergy status to sulfonamides; Z88.1 Allergy status to other antibiotic agents; Z88.8 Allergy status to other drugs, medicaments and biological substances; M54.50 Low back pain, unspecified
CPT/HCPCS: 20680; 72170; 76000; J0131; J0690; J1100; J2405; J2704; J3010; J3370; J3490; J7030

== ENCOUNTER → 2024-08-31 14:32 | Outpatient (BNVA) | payer BC, MEDICAID, SELFPAY | PROVIDERS: PCP Family Medicine; Visit Provider Orthopaedic Surgery | DX: Z98.890 Other specified postprocedural states (principal) | CPT/HCPCS: 72100 ==

== ENCOUNTER → 2025-02-03 13:02 | Outpatient (BNVA) | payer BC, MEDICAID, SELFPAY | PROVIDERS: Visit Provider Orthopaedic Surgery | DX: Z98.890 Other specified postprocedural states (principal); M43.22 Fusion of spine, cervical region | CPT/HCPCS: 72050; 72110 ==